=== PATIENT | female | born 1940 ===

== ENCOUNTER 2018-11-01 09:15 | Outpatient (CLI) | payer MEDICARE, OTHER ==
[2018-11-01 11:19] LABS: Chol/HDL Ratio 4.05 %
== END 2018-11-01 09:16 | disposition home or self-care (01) ==
LOC: LAB 09:15
PROVIDERS: ATTEND Internal Medicine
DX: E11.9 Type 2 diabetes mellitus without complications (principal); E78.5 Hyperlipidemia, unspecified
CPT/HCPCS: 36415; 80061; 83036

== ENCOUNTER 2019-04-02 09:42 | Outpatient (CLI) | payer MEDICARE, OTHER | END 2019-04-02 09:43 | disposition home or self-care (01) | LOC: LAB 09:42 | PROVIDERS: ATTEND Internal Medicine | DX: E11.9 Type 2 diabetes mellitus without complications (principal); E78.5 Hyperlipidemia, unspecified | CPT/HCPCS: 36415; 83525 ==